=== PATIENT | female | born 1995 | race Caucasian/White ===

== ENCOUNTER 2017-01-11 01:58 | Emergency (ER) | payer BC ==
[~2017-01-11] VITALS: Ht 175.3 cm; Wt 63.5 kg
[2017-01-11 03:20] VITALS: BP 94/55
== END 2017-01-11 03:20 | disposition home or self-care (01) ==
LOC: ED 01:58
DX: F10.129 Alcohol abuse with intoxication, unspecified (principal); R11.2 Nausea with vomiting, unspecified
CPT/HCPCS: J2405; J7030